=== PATIENT | male | born 1995 | race Caucasian/White ===

== ENCOUNTER 2017-09-21 04:03 | Emergency (ER) | payer OTHER ==
[~2017-09-21] VITALS: Ht 177.8 cm; Wt 77.1 kg
[2017-09-21 06:19] VITALS: BP 103/61
== END 2017-09-21 06:50 | disposition home or self-care (01) ==
LOC: M.ERS 04:03
DX: F10.129 Alcohol abuse with intoxication, unspecified (principal); Z90.49 Acquired absence of other specified parts of digestive tract; Z91.040 Latex allergy status